=== PATIENT | female | born 1945 ===

== ENCOUNTER 2019-11-14 09:44 | Inpatient (IN) | payer OTHER ==
[~2019-11-14] VITALS: Ht 157.5 cm; Wt 57.6 kg
[~2019-11-14 09:44] MED LIST: HYDRO PO; IMURAN50 MG PO; IRON PO
[2019-11-16] MEDS ORDERED: IRON240 MG PO (16:02)
[2019-11-18] MEDS ORDERED: DUI500 PO (14:14)
[2019-11-18] MEDS ORDERED: PERCOCET 5-3251 EACH PO (14:14)
[2019-11-18] MEDS ORDERED: ELIQUIS2.5 MG PO (14:14)
== END 2019-11-18 19:10 | DRG 470 ==
LOC: SURG 11-16 07:45 → O/R 11-16 07:45 → SURG 11-16 15:29 → O/R 11-16 20:15 → SURG 11-18 19:10
PROVIDERS: ADMIT Orthopaedic Surgery; ATTEND Orthopaedic Surgery
PROC: 0SRR0JZ Replacement of Right Hip Joint, Femoral Surface with Synthetic Substitute, Open Approach (ICD-10-PCS; principal; 2019-11-18)
PROC: 30233N1 Transfusion of Nonautologous Red Blood Cells into Peripheral Vein, Percutaneous Approach (ICD-10-PCS; 2019-11-18)
DX: S72.001A Fracture of unspecified part of neck of right femur, initial encounter for closed fracture (principal); K51.90 Ulcerative colitis, unspecified, without complications; D62 Acute posthemorrhagic anemia; W18.39XA Other fall on same level, initial encounter; Z91.81 History of falling; M81.0 Age-related osteoporosis without current pathological fracture; Z96.642 Presence of left artificial hip joint; M16.11 Unilateral primary osteoarthritis, right hip